=== PATIENT | female | born 1970 | race Two or more races ===

== ENCOUNTER 2017-04-30 16:14 | Emergency (ER) | payer BC ==
[~2017-04-30] VITALS: Ht 154.9 cm; Wt 65.3 kg
[2017-04-30 17:28] VITALS: BP 120/74
[2017-04-30 17:29] LABS: Urine Amorphous Crystal FEW /hpf (None Seen); Urine Blood Negative /uL (Negative); Urine Mucus FEW (None Seen); Urine Specific Gravity 1.018 (1.001-1.035); Urine WBC 58 /hpf (0 - 5)
[2017-04-30 17:30] LABS: Urine Bacteria FEW /hpf (None Seen)
[2017-04-30 19:26] LABS: Basophils # (auto) 0 uL; Basophils % (auto) 0.3 % (0.0-2.0); Eosinophils # (auto) 0 uL; Eosinophils % (auto) 0.1 % (0.0-7.0); Hemoglobin 14.4 g/dL (12.2-16.2); Mean Corpuscular Hemoglobin 25.8 pg (28.0-32.0); Monocytes # (auto) 0.5 uL; Nucleated Red Blood Cells % 0.1 %; Red Blood Cells 5.57 10^6/uL (4.0-5.20); Red Cell Distribution Width 15.5 % (11.8-14.3)
[2017-04-30 19:27] LABS: Hematocrit 42.7 % (36.0-46.0); Lymphocytes # (auto) 0.7 uL; Lymphocytes % (auto) 5.1 % (10.0-50.0); Mean Corpuscular Hgb Conc. 33.6 g/dL (32.0-36.0); Mean Corpuscular Volume 76.8 fL (80.0-100.0); Monocytes % (auto) 3.5 % (0.0-12.0); Platelet Count (auto) 210 10^3/uL (140-450); White Blood Cell 14.3 10^3/uL (4.4-10.8)
[2017-04-30 19:43] LABS: Albumin 3.7 g/dL (3.4-5.0); Calcium 8.3 mg/dL (8.5-10.1); Potassium 3.8 mmol/L (3.5-5.1)
[2017-04-30 19:45] LABS: BUN/Creatinine Ratio 16.4
[2017-04-30 19:48] LABS: Bilirubin, Total 0.5 mg/dL (0.2-1.0); Total Protein 7.7 g/dL (6.4-8.2)
== END 2017-05-01 00:04 | disposition left against medical advice (07) ==
LOC: ER 16:22
DX: R10.9 Unspecified abdominal pain (principal); R11.0 Nausea; Z53.21 Procedure and treatment not carried out due to patient leaving prior to being seen by health care provider
CPT/HCPCS: 36415; 74176; 80053; 81001; 81025; 82150; 83690; 85025